=== PATIENT | female | born 1985 | race Caucasian/White ===

== ENCOUNTER 2021-03-07 07:15 | Inpatient (IN) | payer OTHER ==
[~2021-03-07] VITALS: Ht 157.5 cm; Wt 69.4 kg
[2021-03-07] MEDS ORDERED: PRENATABS FA T1 EACH PO (10:19)
[2021-03-18] MEDS ORDERED: Tylenol #3 PO (08:58)
[2021-03-18] MEDS ORDERED: NAPR500T14 PO (08:58)
[2021-03-18] MEDS ORDERED: RHOGAM ULTR1500 UNIT IM (08:59)
== END 2021-03-18 17:41 | disposition home or self-care (01) | DRG 788 ==
LOC: OB/GYN 03-08 07:15 → O/R 03-15 09:27 → OB/GYN 03-15 15:52
PROVIDERS: ADMIT Obstetrics & Gynecology; ATTEND Obstetrics & Gynecology
PROC: 4A1HXFZ Monitoring of Products of Conception, Cardiac Rhythm, External Approach (ICD-10-PCS; 2021-03-15)
PROC: 10D00Z1 Extraction of Products of Conception, Low, Open Approach (ICD-10-PCS; principal; 2021-03-15 12:00)
DX: O32.1XX0 Maternal care for breech presentation, not applicable or unspecified (principal); O99.824 Streptococcus B carrier state complicating childbirth; Z37.0 Single live birth; Z3A.40 40 weeks gestation of pregnancy; Z86.16 Personal history of COVID-19

== ENCOUNTER 2021-03-15 10:49 | Outpatient (CLI) | payer OTHER ==
[~2021-03-15 10:49] MED LIST: PRENATABS FA T1 EACH PO
== END 2021-03-15 15:00 | disposition home or self-care (01) ==
LOC: LAB 10:49 → CIR.AMB 10:49 → LAB 15:00
PROVIDERS: ATTEND Obstetrics & Gynecology
DX: Z20.818 Contact with and (suspected) exposure to other bacterial communicable diseases (principal)

== ENCOUNTER 2023-10-29 14:07 | Outpatient (CLI) | payer OTHER ==
[~2023-10-29 14:07] MED LIST changes: +NAPR500T14 PO; +RHOGAM ULTR1500 UNIT IM; +Tylenol #3 PO
== END 2023-10-29 14:08 | disposition home or self-care (01) ==
LOC: PRENATAL 14:07
PROVIDERS: ATTEND Obstetrics & Gynecology Maternal & Fetal Medicine
DX: O35.9XX0 Maternal care for (suspected) fetal abnormality and damage, unspecified, not applicable or unspecified (principal); O44.00 Complete placenta previa NOS or without hemorrhage, unspecified trimester; O34.219 Maternal care for unspecified type scar from previous cesarean delivery; O09.529 Supervision of elderly multigravida, unspecified trimester; O36.1999 Maternal care for other isoimmunization, unspecified trimester, other fetus; Z3A.20 20 weeks gestation of pregnancy

== ENCOUNTER → 2024-02-02 11:36 | Outpatient (CLI) | payer OTHER | END | disposition home or self-care (01) | LOC: PRENATAL 11:36 | PROVIDERS: ATTEND Obstetrics & Gynecology Maternal & Fetal Medicine | DX: O26.849 Uterine size-date discrepancy, unspecified trimester (principal); O36.8199 Decreased fetal movements, unspecified trimester, other fetus; O34.219 Maternal care for unspecified type scar from previous cesarean delivery; O09.529 Supervision of elderly multigravida, unspecified trimester; O36.1999 Maternal care for other isoimmunization, unspecified trimester, other fetus; Z3A.33 33 weeks gestation of pregnancy ==